=== PATIENT | male | born 1985 ===

== ENCOUNTER → 2021-04-23 20:21 | Outpatient (BNVA) | payer BC, SELFPAY | PROVIDERS: Family Provider Nurse Practitioner; PCP Nurse Practitioner; Visit Provider Nurse Practitioner | DX: Z20.822 Contact with and (suspected) exposure to COVID-19 (principal) | CPT/HCPCS: 87426 ==

== ENCOUNTER → 2021-08-06 15:51 | Outpatient (BNVA) | payer BC, SELFPAY | PROVIDERS: Family Provider Nurse Practitioner; PCP Nurse Practitioner; Visit Provider Internal Medicine | DX: E29.1 Testicular hypofunction (principal); G25.81 Restless legs syndrome; F32.9 Major depressive disorder, single episode, unspecified; F43.20 Adjustment disorder, unspecified | CPT/HCPCS: 80053; 83001; 83002; 83550; 84146; 84403; 84443 ==

== ENCOUNTER 2021-11-21 14:35 | Outpatient (CLI) | payer BC, SELFPAY ==
--- NOTE | 2021-11-21 14:53 | MR_ITS ---
WS: [id number] MRI RIGHT KNEE NONCONTRAST TECHNIQUE: Axial PD, coronal PD fat sat, coronal PD, sagittal PD, and sagittal PD fat-sat images obta ined. CLINICAL INFORMATION: RIGHT KNEE PAIN COMPARISON: None. FINDINGS: Distal quadriceps and patella tendons are intact. Normal ACL and PCL. Horizontal tear involving the p osterior horn medial meniscus extending to the articular surface. Small associated meniscal cyst saeid g the free edge of the meniscus measuring 5 x 5 mm and along the meniscal root at the intercondylar n otch posteriorly measuring 7 x 5 mm. Meniscus tear extends to the periphery of the meniscus and exten ds to the meniscal root. Narrowing of the medial joint compartment. Small amount of subchondral edema in the tibial plateau and intracondylar notch. Mild chondromalacia patella. Normal medial and lateral patellar retinaculum. No subchondral edema. No rmal popliteal fossa. Normal medial and lateral collateral ligaments. Tiny suprapatellar effusion. MR/MR knee RT wo con* [id number] IMPRESSION: 1. Normal ACL and PCL. 2. Horizontal tear involving the posterior horn medial meniscus extending to t he periphery and meniscal root. Associated small para meniscal cysts described above. 3. Normal lateral meniscus. 4. Mild chondromalacia patella. 5. Moderate narrowing of the medial joint compartment with a small amount of s ubchondral edema in the posterior tibial plateau at the intercondylar notch. 6. MCL and LCL are intact. Outbridge grading: grade II: blister-like swelling/fraying of articular cartila ge extending to surface
== END 2021-11-21 14:36 | disposition home or self-care (01) ==
PROVIDERS: PCP Nurse Practitioner; Visit Provider Internal Medicine
DX: S83.241A Other tear of medial meniscus, current injury, right knee, initial encounter (principal); X58.XXXA Exposure to other specified factors, initial encounter; M22.41 Chondromalacia patellae, right knee
CPT/HCPCS: 73721

== ENCOUNTER → 2021-12-12 15:51 | Outpatient (BNVA) | payer BC, SELFPAY | PROVIDERS: PCP Nurse Practitioner; Referring Provider Internal Medicine; Visit Provider Orthopaedic Surgery | DX: M25.561 Pain in right knee (principal) | CPT/HCPCS: 73560; 73565 ==

== ENCOUNTER → 2022-01-09 00:01 | Outpatient (BNVA) | payer BC, SELFPAY | PROVIDERS: PCP Nurse Practitioner; Visit Provider Orthopaedic Surgery | DX: Z01.818 Encounter for other preprocedural examination (principal); Z20.822 Contact with and (suspected) exposure to COVID-19 | CPT/HCPCS: 87635 ==

== ENCOUNTER 2022-01-10 06:10 | Day surgery (SDC) | payer BC, SELFPAY ==
[2022-01-09 10:04] VITALS: BMI 28.5
[2022-01-10] VITALS (11 sets, daily range): BP systolic 88–139; BP diastolic 63–89; PULSE 72–106; RESP 14–18; TEMP 36.1–36.4; O2SAT 92–97
[2022-01-10] MEDS: sodium chloride 0.9% 1,000 ML 30 ML IV (06:37)
--- NOTE | 2022-01-10 06:55 | W.PM.OPSUD ---
Surgery/Procedure H&P Update DATE OF PROCEDURE: January 10, 2022 DATE H&P PERFORMED: 12/12/21 H&P UPDATE INFORMATION: I have reviewed H&P completed within last 30 days PREOP DIAGNOSIS: Right knee medial meniscal tear PLANNED PROCEDURE: Operation Date: 01/10/22 07:00 Proposed Procedures p Right Knee Arthroscopy with meniscectomy 53810/S83.241A(Right) - Edison Silva MD
[2022-01-10] MEDS: morphine 4 mg/mL SDV 1 mL 8 MG IM (07:18)
--- NOTE | 2022-01-10 07:20 | ANES.PREANE2 ---
Pre-Anesthetic Assessment Height/Weight: Height 1.83 m Weight 95.254 kg Temp Pulse Resp BP Pulse Ox 97.0 F L 72 18 139/89 97 01/10/22 06:22 01/10/22 06:22 01/10/22 06:22 01/10/22 06:22 01/10/22 06:22 Preop Diagnosis: Right knee medial meniscal tear Operation Date: 01/10/22 07:00 Proposed Procedures p Right Knee Arthroscopy with meniscectomy 60158/S83.241A(Right) - Edison Silva MD Familial anesthetic complications: None Was Beta Liliana taken within 24 hours: N/A Was Clonidine taken within 24 hours: N/A Last intake: Intake Last Liquid Date 01/09/22 Last Liquid Time 21:30 Last Solid Date 01/09/22 Last Solid Time 21:30 Social Alcohol (h/o ETOH abuse) and No tobacco Exam alert, oriented x 3, clear to auscultation bilaterally and regular rate & rhythm Airway Submandibular: within normal limits Cervical ROM: within normal limits Mallampati: Class II Dentition: full Comments: Comments: brown History/ROS No significant history except as noted Neuropsych Anxiety and Depression Anesthetic Plan ASA status: 2 Anesthesia: General Risk of > 500 ml blood loss (7ml/kg in children): No Medications/Allergies Home Medications Medication Instructions Recorded Confirmed Last Taken Type venlafaxine 150 mg 225 mg PO DAILY 04/23/21 01/10/22 01/09/22 History capsule,extended release 24 hr (Effexor XR) melatonin 3 mg capsule 3 mg PO DAILY 07/30/21 01/10/22 01/06/22 History testosterone cypionate 200 mg/mL 100 mg (0.5 mL) SUBCUT Q7D #10 ml 09/10/21 01/10/22 01/02/22 Rx intramuscular oil (Depo-Testosterone) hydrocodone 5 mg-acetaminophen 325 1 tab PO Q4H #30 tab 01/10/22 Unknown Rx mg tablet Allergies Allergy/AdvReac Type Severity Reaction Status Date / Time No Known Allergies Allergy Verified 01/09/22 10:00 Current Medications Generic Name Dose Route Start Last Admin Trade Name Freq PRN Reason Stop Dose Admin Sodium Chloride 1,000 mls @ 30 mls/hr 01/10/22 06:15 01/10/22 06:37 Sodium Chloride 0.9% IV 01/11/22 06:14 30 mls/hr .Q24H JORDON Administration PFSH Anesthesia Medical History Adult situational stress disorder Depression Psychiatric care Restless leg Testosterone deficiency in male Social History Smoking and tobacco status: never smoked Second hand smoke exposure: No Data Anesthesia Cardiac Studies: No Data to Display
--- NOTE | 2022-01-10 07:49 | P.OP_ITS ---
Operative Report Date of procedure: January 10, 2022 Pre-op diagnosis: Preop Diagnosis Right knee medial meniscal tear Post-op diagnosis: same Procedure done: Arthroscopic partial right medial meniscectomy Pathology: none sent Surgeon: Edison Silva Anesthesia: General Estimated blood loss (mL): 5 Findings: The patient had a flap tear from the posterior third of the medial meniscus with horizontal split extending into approximately 50% of the posterior third of the medial meniscus Procedure: The patient was taken to the operating room and given a general anesthesia. He is prepped and draped in the supine position with a tourniquet on his right thigh. The tourniquet was never inflated. The knee was infiltrated with 30 cc of 0.5% Marcaine with epi and 10 mg of morphine. A timeout was performed. The knee was entered through standard inferior medial and inferior lateral portal. The diagnostic portion of the arthroscopy was performed and the medial meniscal tear identified. No pathology was identified in the patellofemoral joint or lateral compartment. Initially used an incisor shaver of the large flap fragme nt was removed. This brought us down to area horizontal cleavage. Utilizing incisor shaver and werewolf probe unstable meniscus was debrided back leaving approximately 50% of the meniscus. The knee was irrigated with saline. Portals were closed with 3-0 Prolene. Sterile dressings were applied. The patient was extubated and taken to recovery in stable condition.
--- NOTE | 2022-01-10 14:49 | ANE.PACU2 ---
Inpatient post-anesthesia follow up: Airway intact: Yes Vital signs: Temperature 97.4 F Pulse Rate 91 Respiratory Rate 18 Blood Pressure 116/83 Pulse Oximetry 96 Oxygen Delivery Me thod Room Air Oxygen Flow Rate 2 Fraction of Inspir ed Oxygen Hydration adequate: Yes Nausea and vomiting: No Pain level: 3 Mental status: Baseline
== END 2022-01-10 09:23 | disposition home or self-care (01) ==
PROVIDERS: PCP Nurse Practitioner; Visit Provider Orthopaedic Surgery
PROC: (CPT 29870; principal; 2022-01-10 07:00)
DX: S83.241A Other tear of medial meniscus, current injury, right knee, initial encounter (principal); X58.XXXA Exposure to other specified factors, initial encounter; F41.9 Anxiety disorder, unspecified; F32.9 Major depressive disorder, single episode, unspecified
CPT/HCPCS: 27332; J0690; J1885; J2250; J2270; J2370; J2405; J2704; J3010; J3490; J7030

== ENCOUNTER → 2022-02-18 16:25 | Outpatient (BNVA) | payer BC, SELFPAY | PROVIDERS: PCP Nurse Practitioner; Visit Provider Nurse Practitioner Family | DX: Z91.89 Other specified personal risk factors, not elsewhere classified (principal); R74.8 Abnormal levels of other serum enzymes | CPT/HCPCS: 80053; 86592; 87491; 87530; 87591; 87806 ==

== ENCOUNTER 2022-10-03 20:00 | Outpatient (CLI) | payer BC, SELFPAY | END 2022-10-03 20:01 | disposition home or self-care (01) | LOC: SLEEP 10-04 06:31 | PROVIDERS: PCP Nurse Practitioner; Visit Provider Internal Medicine | DX: G47.33 Obstructive sleep apnea (adult) (pediatric) (principal) | CPT/HCPCS: 95810 ==

== ENCOUNTER 2024-06-03 12:15 | Observation (INO) | payer BC, SELFPAY ==
[2024-06-03] VITALS (19 sets, daily range): BP systolic 102–162; BP diastolic 61–87; PULSE 67–112; RESP 14–20; TEMP 36.4–36.9; O2SAT 92–99; BMI 31.1
--- NOTE | 2024-06-03 13:04 | CT_ITS ---
WS: [id number] CT ABDOMEN PELVIS TECHNIQUE: Contrast-enhanced CT of the abdomen and pelvis with coronal and sagittal reformatted image s. CLINICAL INFORMATION: llq pain COMPARISON: None. DLP: 897.[address] scans at [facility] use at least one of these dose optimization techniques: automated e xposure control; mA and/or kV adjustment per patient size (includes targeted exams where dose is matc hed to clinical indication); or iterative reconstruction. FINDINGS: Fluid-filled dilated enhancing appendix in the RIGHT lower quadrant measuring 8 mm with dinora endicolith at the base of the appendix. Mild surrounding induration compatible with acute appendiciti s. No drainable abscess or fluid collection. Diffuse fatty infiltration of the liver. Hepatomegaly. Gallbladder appears normal. Normal GE junction . Air-fluid level in the stomach. Normal spleen. Splenic granulomas. Adrenal glands are normal. Stephanie l renal parenchymal enhancement. No hydronephrosis. Normal pancreatic parenchymal enhancement. Portal vein and splenic vein appear no rmal. Normal caliber abdominal aorta. Celiac and SMA are patent.. A few sigmoid diverticuli. Divertic buzz in the transverse colon. CT/CT abdomen pelvis w con* [id number] IMPRESSION: Fluid-filled dilated enhancing appendix measuring 8 mm with surrounding induration. Appendicolith at the base of the appendix. Findings compatible with acute appendicitis. No evidence of perforation or free air. No abscess Notified John Willett MD at 06/03/2024 2:31 PM.
--- NOTE | 2024-06-03 13:04 | ED_ITS ---
HPI - Abdominal Pain 2 General: Chief Complaint: Abdominal Pain Stated Complaint: ABD Pain, vomiting, weak Time Seen by Provider: 06/03/24 13:01 Source: patient Mode of arrival: ambulatory Limitations: no limitations History of Present Illness: 38-year-old male states he been having l eft lower quadrant abdominal pain since last night states he had a sharp pain is worse with palpation feels had some nausea vomiting and slight diarrhea with it. He rates his pain a 6 out of 10 currently denies any history of surgery denies any history diverticulitis. Associated Symptoms: Denies chills, diarrhea, fever(s), nausea and vomiting Review of Systems 2 Const: Denies: fever(s), chills, body aches or change in appetite ENMT: Denies: throat pain or dental pain Card: Denies: chest pain Resp: Denies: dyspnea GI: Denies: abdominal pain, nausea, vomiting or diarrhea Musc: Reports: extremity pain; Denies: neck pain or back pain Skin/Breast: Denies: rash Neuro: Denies: headache(s) PFSH ED 2 PFSH: Medical History (Updated 06/03/24 @ 14:41 by John Willett MD) Depression Adult situational stress disorder Testosterone deficiency in male Restless leg Social History Smoking and tobacco/nicotine status: never used tobacco/nicotine Second hand smoke exposure: No Physical Exam 2 Const: COMMON NORMALS: no acute distress, patient oriented x3 and healthy appearing HENMT: COMMON NORMALS: normocephalic and atraumatic HEAD & SCALP: n ormocephalic and atraumatic Neck/C-Spine: COMMON NORMALS: full ROM and supple Chest: COMMONS NORMALS: normal inspection of the chest Resp: COMMON NORMALS: normal respiratory effort Cardio: COMMON NORMALS: regular rate, regular rhythm and No murmurs present (Cardio) RATE: regular rate RHYTHM: regular rhythm GI: COMMON NORMALS: Normal to inspection, nondistended, normoactive bowel sounds present, Soft to palpation and no masses PALPATION: Yes Soft to palpation and Yes Tenderness to palpation present (GI) Details: LLQ and RLQ Extremity: COMMON NORMALS: normal to inspection and full ROM Neuro: COMMON NORMALS: patient oriented x3, moves all extremities and no focal motor deficits Psych: COMMON NORMALS: mental status grossly normal, Normal thought process present and cooperative THOUGHT PROCESS: Normal thought process present Skin: COMMON NORMALS: no rashes or lesions noted and no wounds GENERAL SKIN EXAM: no rashes or lesions noted Course 2 Vital Signs: Vital signs: Vital Signs Temperature 98.3 F 06/03/24 12:29 Pulse Rate 71 06/03/24 12:29 Respiratory Rate 16 06/03/24 13:23 Blood Pressure 127/80 06/03/24 12:29 Pulse Oximetry 99 06/03/24 13:23 MDM - Abdominal Pain Medical Decision Making Patient presents here with abdominal pain he is tender in right lower quadrant CT shows appendicitis did speak to surgery is going to take to the OR Medical Records I reviewed the patient's medical records. Lab Data I reviewed the patient's lab results. 06/03/24 12:50 06/03/24 12:50 Labs/Radiology: Radiology Impressions Abdomen/Pelvis CT 06/03/24 13:04 IMPRESSION: Fluid-filled dilated enhancing appendix measuring 8 mm with surrounding induration. Appendicolith at the base of the appendix. Findings compatible with acute appendicitis. No evidence of perforation or free air. No abscess Notified John Willett MD at 06/03/2024 2:31 PM. Laboratory Results WBC 14.62 10^3/uL (3.29-11.43) H 06/03/24 12:50 RBC 5.20 10^6/uL (3.85-5.65) 06/03/24 12:50 Hgb 15.90 g/dL (11.27-16.99) 06/03/24 12:50 Hct 46.6 % (37-53) 06/03/24 12:50 MCV 89.6 fl (82-101) 06/03/24 12:50 MCH 30.6 pg (27-33) 06/03/24 12:50 MCHC 34.1 g/dL (30-55) 06/03/24 12:50 RDW 12.1 % (12.1-15.1) 06/03/24 12:50 Plt Count 304 10^3/cmm (157-399) 06/03/24 12:50 MPV 10.3 fL (7.4-10.4) 06/03/24 12:50 Neut % (Auto) 90.7 % 06/03/24 12:50 Lymph % (Auto) 6.1 % 06/03/24 12:50 [place] % (Auto) 2.5 % 06/03/24 12:50 Eos % (Auto) 0.1 % 06/03/24 12:50 Baso % (Auto) 0.3 % 06/03/24 12:50 Neut # (Auto) 13.27 10^3/uL (1.8-7.7) H 06/03/24 12:50 Lymph # (Auto) 0.9 10^3/uL (0.8-4.8) 06/03/24 12:50 [place] # (Auto) 0.4 10^3/uL (0.2-0.9) 06/03/24 12:50 Eos # (Auto) 0.0 10^3/uL (0.0-0.8) 06/03/24 12:50 Baso # (Auto) 0.0 10^3/uL (0.0-0.1) 06/03/24 12:50 Nucleated RBC % (auto) 0 % 06/03/24 12:50 Nucleated RBCs # 0.0 /100WBC 06/03/24 12:50 Sodium 139 mmol/L (136-145) 06/03/24 12:50 Potassium 3.9 mmol/L (3.5-5.1) 06/03/24 12:50 Chloride 105 mmol/L (98-107) 06/03/24 12:50 Carbon Dioxide 19 mmol/L (22-29) L 06/03/24 12:50 Anion Gap 18.9 (5-19) 06/03/24 12:50 BUN 16 mg/dL (6-20) 06/03/24 12:50 Creatinine 1.1 mg/dL (0.7-1.2) 06/03/24 12:50 GFR Calculation 74.5 mL/min (90-130) L 06/03/24 12:50 Glucose 131 mg/dL (65-115) H 06/03/24 12:50 Calculated Osmolality 291 mOsm/kg (285-295) 06/03/24 12:50 Calcium 8.7 mg/dL (8.5-10.5) 06/03/24 12:50 Total Bilirubin 0.8 mg/dL (0.15-1.2) 06/03/24 12:50 AST 22 U/L (0-40) 06/03/24 12:50 ALT 41 U/L (0-41) 06/03/24 12:50 Alkaline Phosphatase 70 U/L (40-130) 06/03/24 12:50 Total Protein 7.4 g/dL (6.6-8.7) 06/03/24 12:50 Albumin 4.4 g/dL (3.5-5.2) 06/03/24 12:50 Globulin 3.0 g/dL (1.3-4.6) 06/03/24 12:50 Lipase 20 U/L (13-60) 06/03/24 12:50 Urine Color Yellow (Yellow) 06/03/24 13:59 Urine Appearance Clear (CLEAR) 06/03/24 13:59 Urine pH 6.5 (5-7) 06/03/24 13:59 Ur Specific [place] 1.075 (1.005-1.030) H 06/03/24 13:59 Urine Protein Trace (Negative) A 06/03/24 13:59 Urine Glucose (UA) Negative (Normal) 06/03/24 13:59 Urine Ketones Trace (Negative) 06/03/24 13:59 Urine Blood Negative (Negative) 06/03/24 13:59 Urine Nitrate Negative (Negative) 06/03/24 13:59 Urine Bilirubin Negative (Negative) 06/03/24 13:59 Urine Urobilinogen 1.0 mg/dL (Negative) 06/03/24 13:59 Ur Leukocyte Esterase Negative (Negative) 06/03/24 13:59 Urine RBC 0-2 /hpf (0-2) 06/03/24 13:59 Urine WBC 0-5 /hpf (0-5) 06/03/24 13:59 Ur Squamous Epith Cells 0-5 /hpf (0-5) 06/03/24 13:59 Amorphous Sediment Not Reportable 06/03/24 13:59 Urine Bacteria None seen /hpf (NONE) 06/03/24 13:59 Hyaline Casts 3.30 /lpf 06/03/24 13:59 All radiology interpretation(s) finalized by discharge Discharge Plan Discharge Patient Disposition: Admitted As Inpatient Clinical Impression: Acute appendicitis Condition: Stable Prescriptions: No Action venlafaxine [Effexor XR] 150 mg capsule,extended release 24hr 225 mg PO DAILY Qty: 90 1RF Patient Instructions: Appendicitis (GEN) Coding Level of Care Code ED Vac[employer] Cans for Augustine Castillo
[2024-06-03 13:16] LABS: Basophils % 0.3 %; Eosinophils % 0.1 %; Hematocrit 46.6 % (37-53); Lymphocytes # 0.9 10^3/uL (0.8-4.8); Lymphocytes % 6.1 %; Mean Corpuscular HGB Conc 34.1 g/dL (30-55); Mean Corpuscular Hemoglobin 30.6 pg (27-33); Mean Corpuscular Volume 89.6 fl (82-101); Mean Platelet Volume 10.3 fL (7.4-10.4); Monocytes # 0.4 10^3/uL (0.2-0.9); Monocytes % 2.5 %; Neutrophils # 13.27 10^3/uL (1.8-7.7); Neutrophils % 90.7 %; Nucleated Red Blood Cells % 0 %; Platelet Count 304 10^3/cmm (157-399); Red Cell Distribution Width 12.1 % (12.1-15.1); White Blood Count 14.62 10^3/uL (3.29-11.43)
[2024-06-03] MEDS: morphine 4 mg/mL SDV 1 mL IVP (13:23)
[2024-06-03] MEDS: ondansetron 2 mg/ML SDV 2 mL 4 MG IVP (13:23)
[2024-06-03] MEDS: sodium chloride 0.9% 1,000 ML 999 ML IV (13:23)
[2024-06-03 13:36] LABS: Alanine Aminotransferase 41 U/L (0-41); Albumin Level 4.4 g/dL (3.5-5.2); Alkaline Phosphatase 70 U/L (40-130); Anion Gap 18.9 (5-19); Aspartate Amino Transferase 22 U/L (0-40); Blood Urea Nitrogen 16 mg/dL (6-20); Calcium 8.7 mg/dL (8.5-10.5); Carbon Dioxide 19 mmol/L (22-29); Chloride 105 mmol/L (98-107); Creatinine Clr Calc Pharmacy 112.5926; Glomerular Filtration Rate 74.5 mL/min (90-130); Glucose 131 mg/dL (65-115); Lipase 20 U/L (13-60); Osmolality Calculated 291 mOsm/kg (285-295); Potassium 3.9 mmol/L (3.5-5.1); Sodium 139 mmol/L (136-145); Total Bilirubin 0.8 mg/dL (0.15-1.2); Total Protein 7.4 g/dL (6.6-8.7)
[2024-06-03] MEDS: iohexol 350 mg/mL 500 mL Btl (per mL) IV (13:44)
[2024-06-03 14:07] LABS: Charge for UA Resulting for Rev
[2024-06-03 14:10] LABS: Bilirubin Urine Negative (Negative); Blood Urine Negative (Negative); Glucose Urine UA Negative (Normal); Ketones Urine Trace (Negative); Leukocyte Esterase Urine Negative (Negative); Nitrate Urine Negative (Negative); Protein Urine Trace (Negative); Urine Appearance Clear (CLEAR); Urine Color Yellow (Yellow); pH Urine 6.5 (5-7)
[2024-06-03 14:13] LABS: Bacteria Urine None Seen /hpf; RBC Urine 0-2 /hpf (0-2); Squamous Epithelial Cell Urine 0-5 /hpf (0-5); WBC Urine 0-5 /hpf (0-5)
[2024-06-03 14:16] LABS: Specific Gravity, Urine 1.075 (1.005-1.030)
[2024-06-03 14:18] LABS: Add Urine Culture? No
[2024-06-03] MEDS: HYDROmorphone 1 mg/mL INJ 1 mL IVP (15:02)
[2024-06-03] MEDS: piperacillin-tazobactam 3.375 GM in sodium chloride 0.9% (plus) 50 ML IV ×2 (15:02→23:22)
--- NOTE | 2024-06-03 15:26 | P.ANESASSM_ITS ---
Pre-Anesthetic Assessment Height/Weight: Height 1.83 m Weight 104.326 kg Temp Pulse Resp BP Pulse Ox 98.3 F 71 16 127/80 96 06/03/24 12:29 06/03/24 12:29 06/03/24 15:02 06/03/24 12:29 06/03/24 15:02 Operation Date: 06/03/24 15:30 Proposed Procedures p Laparoscopic Appendectomy(Not Applicable) - Juan Torres MD Familial anesthetic complications: None Was Beta Liliana taken within 24 hours: N/A Was Clonidine taken within 24 hours: N/A Last intake: > 8hrs Social Alcohol (6-8 beers a night) and Tobacco Exam alert, oriented x 3, clear to auscultation bilaterally and regular rate & rhythm Airway Mallampati: Class IV Dentition: full Comments: Comments: large neck, full brown Anesthetic Plan ASA status: 2E Anesthesia: General Risk of > 500 ml blood loss (7ml/kg in children): No Medications/Allergies Home Medications Medication Instructions Recorded Confirmed Last Taken Type venlafaxine 150 mg 225 mg (1.5 x 150 mg) PO DAILY #90 05/13/22 06/03/24 06/02/24 Rx capsule,extended release 24 hr caps (Effexor XR) Allergies Allergy/AdvReac Type Severity Reaction Status Date / Time No Known Allergies Allergy Verified 06/03/24 12:29 [facility] Anesthesia Medical History (Updated 06/03/24 @ 14:41 by John Willett MD) Depression Adult situational stress disorder Testosterone deficiency in male Restless leg Social History Smoking and tobacco/nicotine status: never used tobacco/nicotine Second hand smoke exposure: No Data Anesthesia 06/03/24 12:50 06/03/24 12:50 Short CBC 06/03/24 Range/Units 12:50 WBC 14.62 H (3.29-11.43) 10^3/uL Hgb 15.90 (11.27-16.99) g/dL Hct 46.6 (37-53) % MCV 89.6 (82-101) fl Plt Count 304 (157-399) 10^3/cmm Neut % (Auto) 90.7 % Neut # (Auto) 13.27 H (1.8-7.7) 10^3/uL BMP 06/03/24 12:50 Sodium 139 Potassium 3.9 Chloride 105 Carbon Dioxide 19 L BUN 16 Creatinine 1.1 Glucose 131 H Calcium 8.7 Liver Function 06/03/24 Range/Units 12:50 Total Bilirubin 0.8 (0.15-1.2) mg/dL AST 22 (0-40) U/L ALT 41 (0-41) U/L Alkaline Phosphatase 70 (40-130) U/L Albumin 4.4 (3.5-5.2) g/dL Urine 06/03/24 Range/Units 13:59 Urine Color Yellow (Yellow) Urine Appearance Clear (CLEAR) Urine pH 6.5 (5-7) Ur Specific [place] 1.075 H (1.005-1.030) Urine Protein Trace A (Negative) Urine Glucose (UA) Negative (Normal) Urine Ketones Trace (Negative) Urine Nitrate Negative (Negative) Urine Bilirubin Negative (Negative) Ur Leukocyte Esterase Negative (Negative) Urine RBC 0-2 (0-2) /hpf Urine WBC 0-5 (0-5) /hpf Cardiac Studies: 2 No Data to Display
--- NOTE | 2024-06-03 15:34 | P.CONIM_ITS ---
Providers/Reason For Consult 2 Consulting Physician/Specialty*: Alfredito Torres MD general surgeon Reason for Consult*: evaluate acute appendicitis Requesting Physician: John Willett MD ER provider History of Present Illness History of Present Illness Bo Castillo is a 38 year old male for about a day with RLQ pain and some nausea. He denies any F/C/S. He is not on any antibiotics or strong blood thinners. WBC is 14k. His CT is c/w acute appendicitis. Review of Systems 2 Narrative: Constitutional: denies rigors, singnificant weight gain, increased appetite HEENT: denies chronic cough, blurry vision, excessive tearing, eye pain, flashing lights, odynophagia, painful mastication, change in voice, change in taste, chronic sore throat, hypersalivation Heart: denies racing heart, palpitations, othropnea, PND Lungs: denies hemoptysis, pain with deep inspiration, chronic bronchitis GI: denies hematemesis, hematochezia, dysphagia, tenesmus : denies polyuria, hematuria, painful micturation Musculoskeletal: denies hemarthrosis, Muscle wasting, change in amubation Neuro: denies new onset syncope, dysesthesia, dysequilibrium, ptosis eyelid or face SKin: denies new onset hyperalgia, new rash new cyanosis Endocrine: denies new polyuria, polydipsia, polyphagia, heat intolerance, excessive energy Hem/Onc: denies new petechiae, swollen glands, new excessive epstaxis Psych: denies racing thought Medications/Allergies Home Medications Medication Instructions Recorded Confirmed Last Taken Type venlafaxine 150 mg 225 mg (1.5 x 150 mg) PO DAILY #90 05/13/22 06/03/24 06/02/24 Rx capsule,extended release 24 hr caps (Effexor XR) ciprofloxacin HCl 500 mg tablet 500 mg PO Q12H #20 tabs 06/03/24 Unknown Rx hydrocodone 7.5 mg-acetaminophen 1 tab PO Q6H PRN pain #14 tabs 06/03/24 Unknown Rx 325 mg tablet metronidazole 500 mg tablet 500 mg PO Q8H 10 days #30 tabs 06/03/24 Unknown Rx Allergies Allergy/AdvReac Type Severity Reaction Status Date / Time No Known Allergies Allergy Verified 06/03/24 12:29 venlofaxine PFSH Acute 2 PFSH: Medical History (Updated 06/03/24 @ 15:39 by Juan Torres MD) Depression Adult situational stress disorder Testosterone deficiency in male Restless leg Social History Smoking and tobacco/nicotine status: never used tobacco/nicotine Second hand smoke exposure: No Vitals/I&O/Wt Last Vital Signs Temp 98.3 F 06/03/24 12:29 Pulse 78 06/03/24 15:08 Resp 18 06/03/24 15:08 BP 162/87 06/03/24 15:08 Pulse Ox 96 06/03/24 15:08 Weight last 48 hrs Weight 230 lb Physical Exam 2 Narrative: Patient is a well developed well nourished and in NAD and is afebrile with vitals stable and is answering questions appropriately with a normal affect and is alert and oriented x3 HEENT: normocephalic with normal external ears and nonicteric, oral mucosa moist and dentition normal for age, trachea midline with no large masses visualized Heart: RRR, no gallops murmurs or rubs, normal PMI with no thrills Lungs: normal excursions, no loud audible wheezing, no subcutaneous emphysema Abdomen: nondistended, no gross hepatosplenomegaly, no masses, no rigidity, no loud borborygmi, tender over McBurney's with mild rebound Neuro: nonfocal, DU, grossly normal sensation Musculoskeletal: good muscle tone, no fasciculations, normal gait Skin: pink warm and dry with no rashes or ecchymosis Vascular: good radial pulses, no ulceration, less than 2 second capillary refill in hand : deferred Data 06/03/24 12:50 06/03/24 12:50 A&P Assessment and plan (1) Acute appendicitis: Plan on lap appy possibly open. He understands risks, benefits and alternatives to procedure and wishes to proceed. Risks include bleeding, infection, cardiopulmonary problems, leakage, normal appendis, injury to surrounding structures, more surgery. Qualifiers: Acute appendicitis type: with localized peritonitis Coding Level of Care Code 04543 Diagnoses Acute appendicitis K35.80 Acute appendicitis type: with localized peritonitis
--- NOTE | 2024-06-03 16:16 | P.DS_ITS ---
Discharge Providers Date of Admission: 06/03/24 Date of Discharge: June 04, 2024 Attending Provider at Admission: Alfredito Torres MD general surgery Attending Provider at Discharge: Juan Torres MD general surgery Diagnoses at Discharge Discharge Diagnosis (1) Acute appendicitis: Status: Acute Qualifiers: Acute appendicitis type: with localized peritonitis Appendicitis gangrene presence: without gangrene Appendicitis perforation presence: unspecified whether perforation present Appendicitis abscess presence: without abscess Qualified Code(s): K35.30 - Acute appendicitis with localized peritonitis, without perforation or gangrene Reason for Visit Reason for Visit: ABD Pain, vomiting, weak Brief History: About a day of RLQ pain with some nausea and WBC 14k and CT c/w acute appendicitis. Hospital Course Hospital Course Patient was admitted for acute appendicitis and had lap appy. Postop he did well and was tolerating liquids and ambulating with pain under control. Physical Exam Narrative: Patient is a well developed well nourished and in NAD and is afebrile with vitals stable and is answering questions appropriately with a normal affect and is alert and oriented x3 HEENT: normocephalic with normal external ears and nonicteric, oral mucosa moist and dentition normal for age, trachea midline with no large masses visualized Heart: RRR, no gallops murmurs or rubs, normal PMI with no thrills Lungs: normal excursions, no loud audible wheezing, no subcutaneous emphysema Abdomen: nondistended, no gross hepatosplenomegaly, no masses, no rigidity or rebound, no loud borborygmi Neuro: nonfocal, DU, grossly normal sensation Musculoskeletal: good muscle tone, no fasciculations, normal gait Skin: pink warm and dry with no rashes or ecchymosis Vascular: good radial pulses, no ulceration, less than 2 second capillary refill in hand : deferred Discharge Data Studies Completed and Pending Completed Studies During Hospitalization Category Date Time Status CT abdomen pelvis w con* [id number] Stat Cat Scan 06/03/24 13:04 Completed Radiology Impressions Abdomen/Pelvis CT 06/03/24 13:04 IMPRESSION: Fluid-filled dilated enhancing appendix measuring 8 mm with surrounding induration. Appendicolith at the base of the appendix. Findings compatible with acute appendicitis. No evidence of perforation or free air. No abscess Notified John Willett MD at 06/03/2024 2:31 PM. Laboratory Results WBC 14.62 10^3/uL (3.29-11.43) H 06/03/24 12:50 RBC 5.20 10^6/uL (3.85-5.65) 06/03/24 12:50 Hgb 15.90 g/dL (11.27-16.99) 06/03/24 12:50 Hct 46.6 % (37-53) 06/03/24 12:50 MCV 89.6 fl (82-101) 06/03/24 12:50 MCH 30.6 pg (27-33) 06/03/24 12:50 MCHC 34.1 g/dL (30-55) 06/03/24 12:50 RDW 12.1 % (12.1-15.1) 06/03/24 12:50 Plt Count 304 10^3/cmm (157-399) 06/03/24 12:50 MPV 10.3 fL (7.4-10.4) 06/03/24 12:50 Neut % (Auto) 90.7 % 06/03/24 12:50 Lymph % (Auto) 6.1 % 06/03/24 12:50 [place] % (Auto) 2.5 % 06/03/24 12:50 Eos % (Auto) 0.1 % 06/03/24 12:50 Baso % (Auto) 0.3 % 06/03/24 12:50 Neut # (Auto) 13.27 10^3/uL (1.8-7.7) H 06/03/24 12:50 Lymph # (Auto) 0.9 10^3/uL (0.8-4.8) 06/03/24 12:50 [place] # (Auto) 0.4 10^3/uL (0.2-0.9) 06/03/24 12:50 Eos # (Auto) 0.0 10^3/uL (0.0-0.8) 06/03/24 12:50 Baso # (Auto) 0.0 10^3/uL (0.0-0.1) 06/03/24 12:50 Nucleated RBC % (auto) 0 % 06/03/24 12:50 Nucleated RBCs # 0.0 /100WBC 06/03/24 12:50 Sodium 139 mmol/L (136-145) 06/03/24 12:50 Potassium 3.9 mmol/L (3.5-5.1) 06/03/24 12:50 Chloride 105 mmol/L (98-107) 06/03/24 12:50 Carbon Dioxide 19 mmol/L (22-29) L 06/03/24 12:50 Anion Gap 18.9 (5-19) 06/03/24 12:50 BUN 16 mg/dL (6-20) 06/03/24 12:50 Creatinine 1.1 mg/dL (0.7-1.2) 06/03/24 12:50 GFR Calculation 74.5 mL/min (90-130) L 06/03/24 12:50 Glucose 131 mg/dL (65-115) H 06/03/24 12:50 Calculated Osmolality 291 mOsm/kg (285-295) 06/03/24 12:50 Calcium 8.7 mg/dL (8.5-10.5) 06/03/24 12:50 Total Bilirubin 0.8 mg/dL (0.15-1.2) 06/03/24 12:50 AST 22 U/L (0-40) 06/03/24 12:50 ALT 41 U/L (0-41) 06/03/24 12:50 Alkaline Phosphatase 70 U/L (40-130) 06/03/24 12:50 Total Protein 7.4 g/dL (6.6-8.7) 06/03/24 12:50 Albumin 4.4 g/dL (3.5-5.2) 06/03/24 12:50 Globulin 3.0 g/dL (1.3-4.6) 06/03/24 12:50 Lipase 20 U/L (13-60) 06/03/24 12:50 Urine Color Yellow (Yellow) 06/03/24 13:59 Urine Appearance Clear (CLEAR) 06/03/24 13:59 Urine pH 6.5 (5-7) 06/03/24 13:59 Ur Specific Mcd[place]iel 1.075 (1.005-1.030) H 06/03/24 13:59 Urine Protein Trace (Negative) A 06/03/24 13:59 Urine Glucose (UA) Negative (Normal) 06/03/24 13:59 Urine Ketones Trace (Negative) 06/03/24 13:59 Urine Blood Negative (Negative) 06/03/24 13:59 Urine Nitrate Negative (Negative) 06/03/24 13:59 Urine Bilirubin Negative (Negative) 06/03/24 13:59 Urine Urobilinogen 1.0 mg/dL (Negative) 06/03/24 13:59 Ur Leukocyte Esterase Negative (Negative) 06/03/24 13:59 Urine RBC 0-2 /hpf (0-2) 06/03/24 13:59 Urine WBC 0-5 /hpf (0-5) 06/03/24 13:59 Ur Squamous Epith Cells 0-5 /hpf (0-5) 06/03/24 13:59 Amorphous Sediment Not Reportable 06/03/24 13:59 Urine Bacteria None seen /hpf (NONE) 06/03/24 13:59 Hyaline Casts 3.30 /lpf 06/03/24 13:59 Vitals Last Vital Signs Temp 98.3 F 06/03/24 12:29 Pulse 75 06/03/24 15:39 Resp 18 06/03/24 15:39 BP 128/77 06/03/24 15:39 Pulse Ox 93 06/03/24 15:39 O2 Del Method Room Air 06/03/24 15:39 Discharge Plan Discharge Patient Disposition: Home Condition: Stable Prescriptions: New hydrocodone-acetaminophen 7.5-325 mg tablet 1 tab PO Q6H PRN (Reason: pain) Qty: 14 0RF ciprofloxacin HCl 500 mg tablet 500 mg PO Q12H Qty: 20 0RF metronidazole 500 mg tablet 500 mg PO Q8H 10 Days Qty: 30 0RF Continued venlafaxine [Effexor XR] 150 mg capsule,extended release 24hr 225 mg PO DAILY Qty: 90 1RF Discharge Orders: Discharge Order (Routine); Ordered 06/04/24 Ordered By: Juan Torres Referrals: Sandip Blanc DO [Physician] - 06/21/24 2:55 pm Discharge Diet: Usual diet Discharge Activity: Limit activity as instructed Patient Instructions: Ciprofloxacin (By mouth), Hydrocodone/Acetaminophen (By mouth), Metronidazole (By mouth), Appendicitis (GEN), Laparoscopic Appendectomy (GEN) Activity Restrictions/Additional Instructions: Do not lift over 5 pounds for 2 weeks then not to lift over 20 pounds for 2 more weeks then released to full duty. Do not drink or drive while on narcotics. May shower and replace bandaids if get wet. Do not soak in tub/pool/lopez for at least a month. Call for increasing abdominal pain/nausea/difficulty voiding or having stools. Call for fever over 101.5F, drainage from wounds or signs/symptoms of wound infection that include increased redness/swelling/pain and warmth to wound or purulent drainage. General diet. RTC in a week for follow up and path results. May use clean ice packs on wounds for discomfort. Stand Alone Forms: Work/School Release Discharge Attestations Time Spent in Discharge Care*: less than 30 min Quality Metrics Clinical Quality Measures [ No reported AMI, CVA or VTE this stay] Coding Level of Care Code Acute Code for [facility] Fwd Diagnoses Acute appendicitis with localized peritonitis, without gangrene or abscess, unspecified whether perforation present K35.30 Acute appendicitis type: with localized peritonitis Appendicitis gangrene presence: without gangrene Appendicitis perforation presence: unspecified whether perforation present Appendicitis abscess presence: without abscess
--- NOTE | 2024-06-03 16:22 | P.OP_ITS ---
Operative Report Date of procedure: June 03, 2024 Pre-op diagnosis: RLQ pain Post-op diagnosis: same Procedure done: laparoscopic appendectomy Pathology: appendix sent to path and for culture and sensitivity Surgeon: Juan Torres MD Anesthesia: General Estimated blood loss: minimal Findings: dilated appendix with fibrin on it and small amount of cloudy fluid around appendix that was adherent to abdominal side wall. Brief History: Patient with RLQ pain and signs/symptoms c/w acute appendicitis. She understand s risks, benefits and alternatives to surgery to remove appendix and wishes to proceed. Risks include bleeding, infection, cardiopulmonary problems, normal appendix, leakage, missed lesion, injury to surrounding structures, more surgery and wishes to proceed. Procedure: After adequate anesthesia the abdomen was prepped and draped in a sterile rocky r. A hart catheter was inserted preop to prevent injury to bladder during the case and will be removed postoperatively. The abdominal cavity was entered and pneumoperitoneum was achieved. Ports were placed at the umbilicus, the LUQ and the suprapubic area. Through these instruments were placed. Patient was placed in reverse trendelenberg position with right side up. The appendix was identif ied. An avascular opening was made in the mesoappendix at the appendix base. The appendix was divided here with an endo SOPIHA. The mesoappendix was divided with a ligasure device. The appendix was placed in an endo bag and removed and sent to path and for culture and sensitivity. Area was copiously irrigated out. Port sites were anesthetized with local and removed under direct vision. No active bleeding was noted from the peritoneal side. Fascia at umbilicus was closed with O vicryl sutures. Skin was closed with dermal monocryl and aseptically dressed. Patient tolerated procedure well and taken to recovery room in stable condition.
[2024-06-03] MEDS: BUPivacaine 0.25% INJ 30 mL INJECTION (19:36)
[2024-06-03] MEDS: lactated ringers 1,000 ML 100 ML IV (21:41)
[2024-06-03] MEDS: famotidine 20 mg/2 mL INJ IVP (21:41)
[2024-06-04] VITALS: BP 145/85; PULSE 98; RESP 17; TEMP 36.4; O2SAT 94
[2024-06-04 03:44] LABS: Basophils % 0.1 %; Eosinophils % 0.1 %; Hematocrit 40.2 % (37-53); Lymphocytes # 0.9 10^3/uL (0.8-4.8); Lymphocytes % 6.2 %; Mean Corpuscular HGB Conc 34.6 g/dL (30-55); Mean Corpuscular Hemoglobin 30.6 pg (27-33); Mean Corpuscular Volume 88.5 fl (82-101); Mean Platelet Volume 10.2 fL (7.4-10.4); Monocytes # 0.5 10^3/uL (0.2-0.9); Monocytes % 3.4 %; Neutrophils # 13.11 10^3/uL (1.8-7.7); Neutrophils % 89.9 %; Nucleated Red Blood Cells % 0 %; Platelet Count 272 10^3/cmm (157-399); Red Blood Count 4.54 10^6/uL (3.85-5.65); Red Cell Distribution Width 12.4 % (12.1-15.1); White Blood Count 14.57 10^3/uL (3.29-11.43)
[2024-06-04 04:12] LABS: Anion Gap 16.1 (5-19); Blood Urea Nitrogen 14 mg/dL (6-20); Calcium 8.1 mg/dL (8.5-10.5); Carbon Dioxide 21 mmol/L (22-29); Chloride 106 mmol/L (98-107); Creatinine Clr Calc Pharmacy 103.2098; Glomerular Filtration Rate 67.4 mL/min (90-130); Glucose 155 mg/dL (65-115); Osmolality Calculated 292 mOsm/kg (285-295); Potassium 4.1 mmol/L (3.5-5.1); Sodium 139 mmol/L (136-145)
[2024-06-04 04:20] VITALS: BP 120/64; PULSE 89; RESP 18; TEMP 36.8; O2SAT 93
[2024-06-04] MEDS: piperacillin-tazobactam 3.375 GM in sodium chloride 0.9% (plus) 50 ML IV (06:10)
[2024-06-04] MEDS: lactated ringers 1,000 ML 100 ML IV (06:11)
[2024-06-04 07:15] VITALS: BP 100/58; PULSE 75; RESP 15; TEMP 36.7; O2SAT 95
[2024-06-04] MEDS: docusate sodium 100 mg Capsule PO (09:26)
[2024-06-04] MEDS: famotidine 20 mg/2 mL INJ IVP (09:27)
--- NOTE | 2024-06-04 10:30 | PC.CHAP ---
Pastoral Care Encounter/Spiritual Assessment Type of Contact [x] Declined lyft driver visit [] Patient/Family/Request visit [] Outpatient visit [] Follow-up visit [] Physician referral [] Code/Alert [] Routine visit [] Staff referral [] Actively dying [] Patient sleeping [] Family support [] [] Out of room [] Palliative care [] [] Receiving care in room [] Pre-surgical visit [] Trauma [] Long length of stay [] ICU visit [] Other: Relational/Emotional Strength [] Patient feels connected with others/family/visitors/staff [] Distress [] Loneliness/isolation [] Abandonment Spirituality of Patient [] Person of [place] [] Attends Buddhism of their [place] [] Believes in Prayer [] Reads Bible or Sikhism materials [] There are Spiritual issues to be addressed Packing Machine Tender Interventions [] Prayer [] Active listening [] Non-anxious presence [] Spiritual/emotional support [] Crisis/trauma care [] Spiritual counseling [] Bereavement support [] Provided bereavement packet [] Provided Bible/devotional materials [] Provided toy/stuffed animal, coloring book to patient or family member [] Provided Communion [] Anointing/[place] [] Salvation [] Completed spiritual assessment [] Other: Impact on Illness or Injury [] Angry [] Fearful [] Anxious [] Often cries [] Exhaustion [] Unable to work [] Unable to attend yazidism [] Unable to walk/stand [] Unable to read [] Unable to drive [] Unable to eat/drink [] Unable to sleep [] Unable to be with family [] Patient intubated [] Other: Summary Time spent with patient
[2024-06-04 11:44] VITALS: BP 151/106; PULSE 84; RESP 16; TEMP 36.7; O2SAT 97
[2024-06-04 12:27] VITALS: BP 151/106; PULSE 84; RESP 16; TEMP 36.7; O2SAT 97
== END 2024-06-04 12:28 | disposition home or self-care (01) ==
LOC: ER 15:13 → OR 15:48 → MEDSURG 20:27
PROVIDERS: Admitting Provider Specialist; Emergency Provider Emergency Medicine; Visit Provider Specialist
PROC: 0DTJ4ZZ Resection of Appendix, Percutaneous Endoscopic Approach (ICD-10-PCS; CPT 44970; principal; 2024-06-03 15:30)
DX: K35.30 Acute appendicitis with localized peritonitis, without perforation or gangrene (principal); F32.A Depression, unspecified
CPT/HCPCS: 44970; 36415; 51702; 74177; 80048; 80053; 81003; 81015; 83690; 85025; 87070; 87075; 87077; 87186; 87205; 88304; 94664; 96365; 96375; 99285; G0378; J0330; J1100; J1170; J2250; J2270; J2405; J2543; J2704; J2710; J3010; J3490; J7030; J7120; Q9967